=== PATIENT | female | born 1955 | race Caucasian/White ===

== ENCOUNTER 2016-10-23 05:13 | Day surgery (SDC) | payer OTHER ==
[~2016-10-23] VITALS: Ht 157.5 cm; Wt 103.6 kg
[~2016-10-23 05:13] MED LIST: CARDIZEM CD,CA240 MG PO; DIOVAN80 MG PO; ELIQUIS5 MG PO; HYDROCHLOROTH12.5 M3 PO; LEVOTHYROXINE175 MCG PO; POTASSIUM CHLO10 ME3 PO; SOTALOL80 MG PO; TYLENOL EXTRA500 MG PO; VITAMIN D32000 UNI1 PO
[2016-10-23 05:51] VITALS: BP 145/67
[2016-10-23] MEDS ORDERED: MOTRIN800 MG PO (07:16)
[2016-10-23 09:44] VITALS: BP 139/72
[2016-10-23 10:34] VITALS: BP 143/67
== END 2016-10-23 10:35 | disposition home or self-care (01) ==
LOC: SDC 05:13
DX: N84.0 Polyp of corpus uteri (principal); N95.0 Postmenopausal bleeding; E03.9 Hypothyroidism, unspecified; E78.5 Hyperlipidemia, unspecified; I10 Essential (primary) hypertension; Z82.49 Family history of ischemic heart disease and other diseases of the circulatory system; Z83.3 Family history of diabetes mellitus; Z82.3 Family history of stroke; Z80.3 Family history of malignant neoplasm of breast; Z87.891 Personal history of nicotine dependence
CPT/HCPCS: 88305; J1100; J1885; J2250; J2405; J3010